=== PATIENT | female | born 2000 | race Caucasian/White ===

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

== ENCOUNTER 2021-06-20 07:35 | Inpatient (IN) | payer OTHER ==
[2021-06-20 21:37] LABS: Amphetamine,Urine NEGATIVE (NEGATIVE); Barbiturate,Urine NEGATIVE (NEGATIVE); Benzodiazepine,Urine NEGATIVE (NEGATIVE); Cocaine,Urine NEGATIVE (NEGATIVE); Methadone,Urine NEGATIVE (NEGATIVE); Opiate,Urine NEGATIVE (NEGATIVE); PCP,Urine NEGATIVE (NEGATIVE); THC,Urine NEGATIVE (NEGATIVE)
[2021-06-20 21:40] LABS: Appearance SLIGHTLY CLOUDY (CLEAR); Bilirubin NEGATIVE (NEGATIVE); Blood NEGATIVE Ery/ul (0-5); Epithelial Cells FEW /HPF (FEW); Glucose NEGATIVE (NEGATIVE); Ketones NEGATIVE (NEGATIVE); Leukocyte Esterase TRACE (NEGATIVE); Mucus SLIGHT /HPF (NEGATIVE); Nitrite NEGATIVE (NEGATIVE); Protein,Urine Dip NEGATIVE (Negative); RBC 0-2 /HPF (0-2); Specific Gravity 1.009 (1.005-1.025); Urobilinogen NEGATIVE mg/dL (0-1)
[2021-06-20] MEDS ORDERED: Zofran 4 MG/2 ML VIAL IV PRN (22:57)
[2021-06-20] MEDS ORDERED: XYLOCAINE 1% HCL 20 ML MDV IJ PRN (22:57)
[2021-06-20] MEDS ORDERED: Lactated Ringers 1,000 ML IV SCH (23:00)
[2021-06-20] MEDS ORDERED: PITOCIN 30 UNITS/ LR 500 ML 30 UNITS/500 ML IV.SOLN. IV SCH (23:00)
[2021-06-20 23:33] LABS: Absolute Neutrophil Ct (ANC) 11.32 (1.4-6.9); BASOPHIL % 0.3 % (0.0-0.4); Basophil (Absolute #) 0.05 (0-0.4); Eosinophil % 0.5 % (0.00-5.0); Eosinophil (Absolute #) 0.08 (0-0.5); Hematocrit 36.1 % (35-47); Hemoglobin 11.9 gm/dl (12.0-16.0); Lymphocyte (Absolute #) 4.82 (1.0-4.6); Lymphocytes % 27.5 % (24.0-44.0); Mean Cell Volume 83.2 fl (78-100); Mean Corpuscular Hemoglobin 27.4 pg (26-32); Mean Platelet Volume 10.8 fl (7.5-11.0); Monocyte (Absolute #) 1.28 (0.0-1.3); Monocytes % 7.3 % (0.0-12.0); Neutrophil % 64.4 % (36.0-66.0); Platelet Count 297 K/mm3 (150-450); Red Blood Count 4.34 M/mm3 (4.1-5.4); Red Cell Distribution Width 14.5 % (11.5-14.0); White Blood Count 17.6 K/mm3 (4.0-10.5)
[2021-06-20 23:41] LABS: ALBUMIN 3.7 g/dL (3.5-5.0); ALKALINE PHOSPHATASE 158 U/L (38-126); ANION GAP 13.4 MEQ/L (5-15); BLOOD UREA NITROGEN 2 mg/dL (7-17); CHLORIDE 105 mmol/L (98-107); Calcium 9.3 mg/dL (8.4-10.2); Carbon Dioxide 22 mmol/L (22-30); Creatinine 1 0.48 mg/dL (0.52-1.04); EST GLOMERULAR FILTRATION RATE > 60.0 ML/MIN; Glucose 100 mg/dL (74-106); Potassium 3.2 mmol/L (3.5-5.1); SGOT/AST 20 U/L (14-36); SGPT/ALT 10 U/L (0-35); SODIUM 137 mmol/L (137-145); Total Protein 6.8 g/dL (6.3-8.2); Uric Acid 2.9 mg/dL (2.6-6.0)
[2021-06-21 00:23] LABS: ABO TYPING A; Antibody Screen NEGATIVE (NEGATIVE); RH TYPING POSITIVE
[2021-06-21] MEDS: TYLENOL EXTRA STRENGTH 500 MG PO PRN ×2 (06:56→21:37)
[2021-06-21] MEDS ORDERED: PITOCIN 30 UNITS/ LR 500 ML 30 UNITS/500 ML IV.SOLN. IV SCH (12:00)
[2021-06-21] MEDS: Lactated Ringers 1,000 ML IV SCH (20:00)
[2021-06-21] MEDS: ZOLOFT 50 MG TABLET PO SCH (21:38)
[2021-06-21] MEDS ORDERED: STADOL 2 MG IV PRN (21:56)
[2021-06-21] MEDS ORDERED: CYTOTEC PO SCH (23:40)
[2021-06-22] MEDS: CYTOTEC PO SCH ×4 (02:00→06:00)
[2021-06-22] MEDS: Lactated Ringers 1,000 ML IV SCH ×4 (03:00→15:07)
[2021-06-22] MEDS ORDERED: OB EPIDURAL NAROPIN/SUFENTANIL IN NACL EPIDURAL PRN (06:17)
[2021-06-22] MEDS ORDERED: Lactated Ringers 1,000 ML IV ONE (06:17)
[2021-06-22] MEDS ORDERED: Ephedrine Sulfate 50 MG/ML IV PRN (06:17)
[2021-06-22] MEDS ORDERED: MEDICATION INTERVENTION MC SCH (07:45)
[2021-06-22] MEDS: PITOCIN 30 UNITS/ LR 500 ML 30 UNITS/500 ML IV.SOLN. IV SCH ×2 (08:18→17:13)
[2021-06-22] MEDS ORDERED: NON-FORMULARY ITEM (Prenatal Vits W-Ca,Fe,Fa(<1mg) [Prenatal] 1 TAB) PO SCH (10:00)
[2021-06-22 10:30] LABS: HBsAg Screen Negative (Negative)
[2021-06-22] MEDS ORDERED: TRANEXAMIC ACID 1000 MG/10 ML 1,000 MG in Sodium Chloride 0.9% 100 ML BAG 100 ML IV ONE (16:50)
[2021-06-22] MEDS ORDERED: Sodium Chloride 0.9% 100 ML BAG 100 ML ONE (16:51)
[2021-06-22] MEDS ORDERED: TRANEXAMIC ACID 1000 MG/10 ML ONE (16:51)
[2021-06-22] MEDS ORDERED: Dermoplast Spray TP PRN (17:33)
[2021-06-22] MEDS ORDERED: MOTRIN 400 MG PO PRN (17:33)
[2021-06-22] MEDS ORDERED: Anucort-HC SUPPOSITORY PR PRN (17:33)
[2021-06-22] MEDS ORDERED: LANSINOH 40 GM TOP PRN (17:33)
[2021-06-22] MEDS ORDERED: Mylicon 80MG PO PRN (17:33)
[2021-06-22] MEDS ORDERED: Dulcolax 10 MG SUPP PR PRN (17:33)
[2021-06-22] MEDS ORDERED: TYLENOL EXTRA STRENGTH 500 MG PO PRN (17:33)
[2021-06-22] MEDS ORDERED: CORTISONE 1% CREAM TP PRN (17:33)
[2021-06-22] MEDS ORDERED: NORCO 5/325 MG PO PRN (17:33)
[2021-06-22] MEDS ORDERED: TUCKS TP ONE (18:25)
[2021-06-22] MEDS ORDERED: Adacel Vial IM ONE (20:00)
[2021-06-22] MEDS ORDERED: THERAGRAN MULTIVITAMIN ONE (21:21)
[2021-06-22] MEDS: Colace 100 MG PO SCH (22:05)
[2021-06-22] MEDS: ZOLOFT 50 MG TABLET PO SCH (22:05)
[2021-06-23 08:38] LABS: Absolute Neutrophil Ct (ANC) 11.96 (1.4-6.9); BASOPHIL % 0.2 % (0.0-0.4); Basophil (Absolute #) 0.04 (0-0.4); Eosinophil % 0.6 % (0.00-5.0); Eosinophil (Absolute #) 0.11 (0-0.5); Hematocrit 27.3 % (35-47); Hemoglobin 8.6 gm/dl (12.0-16.0); Lymphocyte (Absolute #) 3.41 (1.0-4.6); Lymphocytes % 19.9 % (24.0-44.0); Mean Corpuscular Hemoglobin 26.8 pg (26-32); Mean Corpuscular Hgb Concent. 31.5 g/dl (32-36); Mean Platelet Volume 10.6 fl (7.5-11.0); Monocyte (Absolute #) 1.59 (0.0-1.3); Monocytes % 9.3 % (0.0-12.0); Platelet Count 229 K/mm3 (150-450); Red Blood Count 3.21 M/mm3 (4.1-5.4); Red Cell Distribution Width 14.6 % (11.5-14.0); White Blood Count 17.1 K/mm3 (4.0-10.5)
[2021-06-23] MEDS ORDERED: FERREX 150 PO SCH ×2 (10:00→22:00)
[2021-06-23] MEDS: Colace 100 MG PO SCH ×2 (10:04→22:03)
[2021-06-23 19:16] VITALS: O2SAT 98
[2021-06-23] MEDS: Lactated Ringers 1,000 ML IV SCH (20:47)
[2021-06-23] MEDS: CYTOTEC PO SCH (21:24)
[2021-06-23] MEDS ORDERED: THERAGRAN MULTIVITAMIN PO SCH (22:00)
[2021-06-23] MEDS: ZOLOFT 50 MG TABLET PO SCH (22:03)
[2021-06-24 02:08] VITALS: PULSE 81
--- NOTE | 2021-06-24 04:45 | PCM.NOTE ---
Date and Time: 06/24/21 0443 Subjective Assessment: PPD 2 SP PT RESTING IN BED AND DOING WELL VSS AFEBRILE ABD; SOFT UTERUS; FIRM LOCHIA; MILD A/P SP PPD 2 WITH ANEMIA DC HOME TODAY SHOULD FU IN OFFICE IN 3 WKS IRON SUPPLEMENTATION OBJECTIVE DATA Vital Signs: Vital Signs - 24 hr Temp Pulse Resp BP Pulse Ox 06/24/21 02:00 97.7 F 81 17 127/72 98 06/23/21 20:00 98.7 F 88 19 132/76 98 06/23/21 14:00 98.4 F 83 20 140/86 98 06/23/21 08:00 98.1 F 75 20 134/73 97 Pain Assessment - Last Documented Pain Intensity [Anterior/ 2 Posterior] Pain Intensity 1 Pain Scale Used 0-10 Pain Scale Intake and Output: Intake & Output 06/21/21 06/22/21 06/23/21 06/24/21 11:59 11:59 11:59 11:59 Intake Total 850 1603 1200 Balance 850 1603 1200 Weight 95.708 kg Lab Results: Lab Results-Last 24 Hours 06/23/21 Range/Units 08:08 WBC 17.1 H (4.0-10.5) K/mm3 RBC 3.21 L (4.1-5.4) M/mm3 Hgb 8.6 L (12.0-16.0) gm/dl Hct 27.3 L (35-47) % MCV 85.0 (78-100) fl MCH 26.8 (26-32) pg MCHC 31.5 L (32-36) g/dl RDW 14.6 H (11.5-14.0) % Plt Count 229 (150-450) K/mm3 MPV 10.6 (7.5-11.0) fl Gran % 70.0 H (36.0-66.0) % Eos # (Auto) 0.11 (0-0.5) Absolute Lymphs (auto) 3.41 (1.0-4.6) Absolute Monos (auto) 1.59 H (0.0-1.3) Lymphocytes % 19.9 L (24.0-44.0) % Monocytes % 9.3 (0.0-12.0) % Eosinophils % 0.6 (0.00-5.0) % Basophils % 0.2 (0.0-0.4) % Absolute Granulocytes 11.96 H (1.4-6.9) Basophils # 0.04 (0-0.4) Slides for Path Review
--- NOTE | 2021-06-24 04:49 | PCM.DS ---
Discharge Summary Date of Admission: 06/22/21 07:35 Admitting Physician: DESTINY PEREZ DO Consults: Consults on Case 06/22/21 06:18 Notify Anesthesia Provider PRN 06/22/21 17:40 Navigation ONCE Primary Care Provider: SUNDEEP MCCLELLAND Allergies Allergies latex Allergy (Verified 06/20/21 21:37) [facility] Summary - Hospital Course Hospital Course: PT ADMITTED ON JUNE 20 FOR ELEVATED BLOOD PRESSURE AT 39 WKS GESTATION AND WAS SUBSEQUENTLY INDUCED WITH VAGINAL CYTOTEC WHERE SHE RECEIVED 6 DOSES OF VAGINAL CYTOTEC FOLLOWED BY SEVERAL DOSES OF PO CYTOTEC AND DELIVERED VAGINALLY SUCCESSFULLY ON JUNE 22 LIVE BABY GIRL VIA . DURING PERIOD DID WELL AND WAS NOTED BEING ANEMIC WITH HGB 8.7 AND WAS STARTED ON IRON SUPPLEMENTATION. PT AT THIS TIME STABLE FOR DISCHARGE AND WAS GIVEN RX FOR IRON SUPPLEMENTATION AND ADVISED TO FU IN OFFICE IN 3 WKS. ALL QUESTIONS ANSWERED TO HER SATISFACTION. - Vitals & Intake/Output Vital Signs: Vital Signs Temperature 97.7 F 06/24/21 02:00 Pulse Rate 81 06/24/21 02:00 Respiratory Rate 17 06/24/21 02:00 Blood Pressure 127/72 06/24/21 02:00 O2 Sat by Pulse Oximetry 98 06/24/21 02:00 Intake & Output: Intake & Output 06/21/21 06/22/21 06/23/21 06/24/21 11:59 11:59 11:59 11:59 Intake Total 850 1603 1200 Balance 850 1603 1200 Weight 95.708 kg - Lab Result Diagrams: 06/23/21 08:08 06/20/21 23:19 Lab Results-Last 24 Hrs: Lab Results-Last 24 Hours 06/23/21 Range/Units 08:08 WBC 17.1 H (4.0-10.5) K/mm3 RBC 3.21 L (4.1-5.4) M/mm3 Hgb 8.6 L (12.0-16.0) gm/dl Hct 27.3 L (35-47) % MCV 85.0 (78-100) fl MCH 26.8 (26-32) pg MCHC 31.5 L (32-36) g/dl RDW 14.6 H (11.5-14.0) % Plt Count 229 (150-450) K/mm3 MPV 10.6 (7.5-11.0) fl Gran % 70.0 H (36.0-66.0) % Eos # (Auto) 0.11 (0-0.5) Absolute Lymphs (auto) 3.41 (1.0-4.6) Absolute Monos (auto) 1.59 H (0.0-1.3) Lymphocytes % 19.9 L (24.0-44.0) % Monocytes % 9.3 (0.0-12.0) % Eosinophils % 0.6 (0.00-5.0) % Basophils % 0.2 (0.0-0.4) % Absolute Granulocytes 11.96 H (1.4-6.9) Basophils # 0.04 (0-0.4) Slides for Path Review Micro Results-Entire Visit: Microbiology 06/22/21 09:23 Urine Culture - Final Urine, Indwelling Catheter NO GROWTH Final Diagnosis/Problem List - Final Discharge Diagnosis/Problem (1) Vaginal delivery Current Visit: Yes Status: Acute Code(s): O80 - ENCOUNTER FOR FULL-TERM UNCOMPLICATED DELIVERY (2) Gestational hypertension Current Visit: Yes Status: Acute Code(s): O13.9 - GESTATIONAL HTN W/O SIGNI FICANT PROTEINURIA, UNSP TRIMESTER - Discharge Disposition: Home, Self-Care Condition: Stable Prescriptions: No Action Vits W-Ca,Fe,FA(<1Mg) [] 1 tab PO DAILY Sertraline HCl 50 mg [Zoloft 50 mg Tablet] 50 mg PO HS Instructions: and Working, Diet, Vaginal Delivery (DC), Breast Care for the Woman, High Blood Pressure and , What to Watch for After You Have a Baby Follow up with: SUNDEEP MCCLELLAND NP [Primary Care Provider] - DESTINY PEREZ DO [ACTIVE STAFF] - 3 weeks (NOTHING PER VAGINA AT THIS TIME )
[2021-06-24 09:17] VITALS: BP 131/83
== END 2021-06-24 11:45 | disposition home or self-care (01) | DRG 807 ==
LOC: OB 07:35 → OBSVTOIN 06-22 07:35
PROVIDERS: ADMIT Obstetrics & Gynecology; ATTEND Obstetrics & Gynecology
PROC: 10E0XZZ Delivery of Products of Conception, External Approach (ICD-10-PCS; principal; 2021-06-22)
DX: O13.4 Gestational [pregnancy-induced] hypertension without significant proteinuria, complicating childbirth (principal); Z37.0 Single live birth; O70.0 First degree perineal laceration during delivery; Z3A.39 39 weeks gestation of pregnancy; D64.9 Anemia, unspecified
CPT/HCPCS: 36415; 59400; 80053; 80307; 81001; 84550; 85025; 86850; 86900; 86901; 87086; 87340; 90471; 90715; G0378; J0595; J2405; J2590; J2795; A9270-GY